=== PATIENT | male | born 1990 | race Caucasian/White ===

== ENCOUNTER 2025-06-09 13:29 | Emergency (ER) | payer OTHER, SELFPAY ==
[2025-06-09 13:45] VITALS: BP 98/58
--- NOTE | 2025-06-09 15:10 | ED.GENMED ---
History of Present Illness
General
Chief Complaint: Psychiatric Problem
Source: patient and family
Exam Limitations: none
Time Seen by Provider: 06/09/25 14:42
Nursing documentation reviewed up to this point in time: agreed with
History of Present Illness
History of Present Illness:
35-year male past medical history of Tourette's/ bipolar disorder presents to the ER for evaluation. Patient reports every day he is having increasing episodes of panic attack anxiety. He reports he starts to shake all over and his Tourette's
becomes worse. He is not exactly sure what is triggering this but symptoms are getting worse. He does have a psychiatrist and is on lamotrigine however does not currently see a therapist.
Patient at this time feels calmer and no acute distress mother at bedside. Denies any suicidal homicidal thoughts.
Mom at bedside reports they have an appointment neurology because he has not had his stress evaluated for years however that appointment is not until January.
Past History
Past History
ED Past Medical History: GERD and Psychiatric (Bipolar disorder)
ED Past Surgical History: None
Social History
Tobacco: Smoker
Alcohol: Occasional
Drug: Marijuana and Other (Previous narcotic abuse)
Personal: Single
Living: with family
Employment: Employed (Farm work)
Family History
Family History: Other (Noncontributory)
Phy Exam
General Physical Exam
General Presentation: no apparent distress
General age: appears stated age
General Skin: warm and dry
General Habitus: normal
General Mental: alert
General Hydration: appears well hydrated
Neurological Exam
Neurological Exam: alert and oriented x3
Musculoskeletal Exam
Musculoskeletal Exam: full ROM
Skin Exam
Skin Exam: normal color and warm/dry
Psychiatric Exam
Psychiatric Exam: normal mood/affect
Course
Orders/Labs/Results
Orders:
Orders
06/09/25 15:08
Crisis Consult Urgent
Reason for Consult: eval for anxiety episdoes
Vital Signs
Initial and Last Documented VS:
Initial Vital Signs
Temp Pulse Resp BP Pulse Ox
98.4 F 62 18 98/58 97
06/09/25 13:45 06/09/25 13:45 06/09/25 13:45 06/09/25 13:45 06/09/25 13:45
Last Documented Vital Signs
Temp Pulse Resp BP Pulse Ox
97.7 F 57 17 93/51 100
06/09/25 17:09 06/09/25 17:09 06/09/25 17:09 06/09/25 17:09 06/09/25 17:09
MDM/Problems Addressed
Differential Diagnosis Includes:
not limited to: panic attacks, anxiety
MDM/Problems Addressed:
Patient is a 35-year male presents with complaints of worsening anxiety and Tourette's episodes which are causing him to have difficulty in his everyday life. He denies any suicidal homicidal thoughts. He is much calmer presently but reports at
home he was very anxious this morning. He is no acute distress stable. Patient was eval by crisis. I did recommend him following up with us as well as a psychiatrist. Mom was concerned that these episodes of Tourette's were possibly seizures
however these have been occurring for months.patient feels as though these are his anxiety panic attack episodes where he just 'cannot stop shaking 'because of his anxiety. We did discuss possibility of a CAT scan however patient wishes to be
worked up as an outpatient with neurology and I do think this is reasonable.
I did recommend outpatient follow-up family doctor however he recently got a new family doctor and has not scheduled an appointment yet. In the meantime we will give patient family practice clinic as well as neurology even though he has an
appointment scheduled for January I recommend that he try to call for a sooner appointment.
Acute Exacerbation and/or Progression of Chronic Illness: HTN
*Pulse Oximetry
SaO2: 97
Oxygen Mode of Delivery: Room air
Patient hypoxic: no
*Critical Care Note
Total Time (30-74mins, 75-104mins- exclusive of procedures): Not Applicable
ED Attending Note
-
Portions of this chart may have been created with voice recognition software.� Occasional wrong word or��sound alike� substitutions may have occurred due to the inherent limitations of voice recognition software.
Discharge Plan
Departure
Patient Disposition: Home (Routine Discharge)
Date of Disposition: 06/09/25
Time of Disposition: 17:27
Patient with high blood pressure during this ER visit?: No
Condition: Fair
Covid-19: Not Applicable
Discharge Problem:
Anxiety
Instructions: Bipolar Disorder (DC), Anxiety in adults - ED (DC)
Prescriptions:
No Action
loratadine 10 MG tablet
10 mg PO DAILY
lamotrigine 100 MG tablet
300 mg PO DAILY
omeprazole [Prilosec] 40 MG capsule,delayed release(DR/EC)
40 mg PO DAILY
doxycycline hyclate 100 MG capsule
100 mg PO NOW Qty: 20 0RF
phenazopyridine 200 MG tablet
200 mg PO Q8HPRN PRN (Reason: dysuria) Qty: 10 0RF
levofloxacin [Levaquin] 500 MG tablet
500 mg PO Daily Qty: 7 0RF
metronidazole 500 MG tablet
500 mg PO TID Qty: 21 0RF
Referrals:
[facility] [Outside]
Christophe Aviles MD [Active, Neurology]
Activity Restrictions/Additional Instructions:
Please follow-up as discussed. You were given family practice clinic for follow-up. please call tomorrow to schedule an appointment soon as possible. Please see neurology as follow up. Continue to follow up with your psychiatrist. Return if
any worsening of symptoms.
Interventions
Interventions:
*Risk Screen - Suicide Last Done: 06/09/25 13:45
*General Assessment Last Done: 06/09/25 13:45
*Neglect/Abuse Screening Last Done: 06/09/25 13:45
*ED- Fall Risk Assessment Last Done: 06/09/25 17:09
*ED COVID-19 Vaccine History Last Done: 06/09/25 17:09
*ED Influenza Vaccine History Last Done: 06/09/25 17:09
*Nursing Disposition Last Done: 06/09/25 17:46
ED-Psychological Assessment Last Done: 06/09/25 17:46
Discharge Date and Time
Discharge Date/Time: 06/09/25 17:47
Print Language: [place]
[2025-06-09 17:09] VITALS: BP 93/51
== END 2025-06-09 17:47 | disposition home or self-care (01) ==
LOC: EMR 13:29
PROVIDERS: EMERGENCY PHYSICIAN Emergency Medicine
DX: F41.9 Anxiety disorder, unspecified (principal); F95.2 Tourette's disorder; F31.9 Bipolar disorder, unspecified; F17.200 Nicotine dependence, unspecified, uncomplicated
CPT/HCPCS: 99282

== ENCOUNTER → 2025-06-26 10:52 | Outpatient (REF) | payer OTHER, SELFPAY | LOC: EEG 10:52 | PROVIDERS: ATTENDING PHYSICIAN Psychiatry & Neurology Neurology; FAMILY PHYSICIAN Family Medicine | DX: R25.9 Unspecified abnormal involuntary movements (principal) | CPT/HCPCS: 95816 ==